=== PATIENT | female | born 1985 | race Caucasian/White ===

== ENCOUNTER 2023-02-14 05:17 | Inpatient (IN) | payer SELFPAY, OTHER ==
--- NOTE | 2023-02-08 09:10 | EKG12_ITS ---
Test Reason : PRE OP Blood Pressure : / mmHG Vent. Rate : 087 BPM Atrial Rate : 087 BPM P-R Int : 156 ms QRS Dur : 086 ms QT Int : 372 ms P-R-T Axes : 035 059 037 degrees QTc Int : 447 ms Normal sinus rhythm Normal ECG Confirmed by HOWARD VERMA ([id number]), health editor SANTHOSH MCMULLEN ([id number]) on 02/14/2023 1:50:55 PM Referred By: Benji Wadsworth Confirmed By:HOWARD VERMA
[2023-02-08 11:01] LABS: Hematocrit 41.8 % (37-47); Hemoglobin 14.4 g/dL (12.0-15.0); Mean Corp Hgb Conc 34.4 g/dL (32-36); Mean Corpuscular Hgb 31.6 pg (27.0-32.0); Mean Corpuscular Volume 91.9 fL (81-99); Mean Platelet Vol. 9.4 fl (6.2-12.0); Platelet Count 213 K/mm3 (150-450); RBC Distribution Width CV 13.1 % (11.6-14.6); RBC Distribution Width SD 44.5 fl (35.1-43.9); Red Blood Count 4.55 M/mm3 (4.2-5.4)
[2023-02-08 11:18] LABS: Anion Gap 5 (5-15); BUN 8 mg/dL (7-18); BUN/Creat Ratio 11.1 RATIO (10-20); Calcium,Total 8.9 mg/dL (8.5-10.1); Chloride 110 mmol/L (98-107); Creatinine, Serum 0.72 mg/dL (0.55-1.02); EST Glomerular Filtration Rate 96 mL/min (>60); Est Glom Filt Rate - Afr Amer 116 mL/min (>60); Glucose 105 mg/dL (74-106); Potassium 3.7 mmol/L (3.5-5.1); Sodium Level 140 mmol/L (136-145)
[2023-02-14] VITALS (12 sets, daily range): BP systolic 100–129; BP diastolic 53–91; PULSE 65–92; RESP 16–24; TEMP 36.4–37.3; O2SAT 94–100; BMI 48.6; BMI 48.4
--- NOTE | 2023-02-14 | HYST_PTH ---
PATIENT: IVETTE BROWN LOC: [facility]3 U#:[id number] AGE/SX: 37/F ROOM: MS316 RE02/14/[address]: Dr. Benji Brown MD : 1985 BED: 1 DIS: 02/15/2023 SPEC #: [id number] RECD: 02/14/23 10:36 STATUS: KAREY REQ #: [id number] BUZZ: 02/14/23 00:[address]: Benji Brown DEPT: SURGICAL PATHOLOGY RECD BY: Silverio Alberto ENTERED: 02/14/23 10:37 SP TYPE: HYSTERECT OTHR DR: Dr. Jan Cardoso MD Tissues: Uterus, NOS Procedures: Surgery Specimen Level V HEADER OPERATION: ERAS, hysterectomy, ANT, bilateral salpingectomy PRE-OP DIAGNOSIS: Abnormal uterine bleeding, leiomyomas TISSUE SUBMITTED: Bilateral fallopian tubes, cervix, uterus MICROSCOPIC DIAGNOSIS Uterus, supracervical hysterectomy: Endocervix - mild chronic inflammation. Endometrium - secretory endometrium. Myometrium - leiomyomas. Right fallopian tube - no pathologic change. Left fallopian tube - paratubal cysts. AM:gopi 02/15/2023 MICROSCOPIC DESCRIPTION Slides are reviewed. GROSS DESCRIPTION Received in fixative is one container labeled with the patient's name and designated uterus. The specimen consists of a supracervical uterus with cervix measuring 14.0 x 11.0 x 8.5 cm and weighing 554 gm. Also present free in the container is an ovoid, rubbery, pink-white mass measuring 17.0 x 15.0 x 10.5 cm and weighing 1425 gm and grossly resembling a leiomyoma. Also present free in the container are two fallopian tubes with average length of 5.0 cm and average diameters of 0.7 cm. The endocervical canal measures 3.0 cm in length and is grossly unremarkable. The triangular endometrial cavity measures 8.0 x 5.0 cm. The velvety, light burgess endometrium measures up to 0.2 cm in thickness. The myometrium measures approximately 2.0 cm in thickness and distorted by multiple spherical rubbery nodules resembling leiomyomas and ranging in size from 0.2 to 9.5 cm. Melter Caster sections are submitted in 12 cassettes as follows: 1 - anterior endocervix, 2 - posterior endocervix, 3 & 4 - anterior uterine wall, 5 & 6 - posterior uterine wall with largest myometrial mass, 7 - second largest myometrial mass, 8 - third largest myometrial mass, 9 & 10 - myometrial mass free in container, 11 - one fallopian tube, 12 - the other fallopian tube. / AM:gopi 02/14/2023 TC:1 CPT: 73853
[2023-02-14] MEDS: Gabapentin 600 MG Tablet PO (06:06)
[2023-02-14] MEDS: Acetaminophen 500 MG Tablet 1000 MG PO ×3 (06:06→18:29)
[2023-02-14 06:09] LABS: Internal QC Validated? YES +Cl - CLEAR BKGD; Pregnancy, Urine Negative Negative
[2023-02-14] MEDS: Lactated Ringers 1,000 ML 40 ML IV (06:39)
[2023-02-14] MEDS: Magnesium 1 GM over 15 mins IV (06:39)
[2023-02-14 06:48] LABS: Bedside Glucose 96 mg/dL (74-106)
--- NOTE | 2023-02-14 07:21 | PCM.HP.BLA ---
History and Physical Date of Admission: 02/14/23 Chief complaint: Abnormal uterine bleeding and fibroids History present illness: 37-year-old arrives for scheduled total abdominal hysterectomy and bilateral salpingectomy for abnormal uterine bleeding and leiomyomas. No medical changes since last seen. All questions answered and consent signed. Obstetric history: G0 Past medical history: Anxiety depression Medications: Effexor Allergies: No known drug allergies Past surgical history: None Social history: Denies smoking, alcohol use, drug use Family history: Denies history DVT or PE Review of systems: Besides above pertinent positives a full review of systems was performed and found to be negative Physical exam: Vitals: Blood pressure 126/91 pulse 92 respiratory rate 18 temperature 97.8 ?F SPO2 100% on room air General: Normal-appearing no acute distress HEENT: Normocephalic/atraumatic no cervical lymphadenopathy Cardiac/respiratory: No use accessory muscles, nonlabored breathing Abdomen: Soft, nontender, palpable fibroid uterus Extremities: No peripheral edema normal peripheral pulses Psych: Normal affect normal demeanor nonpressured speech Labs: Urine test negative, One Touch blood sugar 96 Assessment plan: 37-year-old for scheduled total abdominal hysterectomy bilateral salpingectomy for abnormal uterine bleeding and leiomyomas. Patient understands risk of the procedure include but are not limited to visceral or vascular injury, prolonged hospitalization, blood loss need for transfusion, reoperation. Patient state understanding wish to proceed. All questions were answered and consent was signed.
--- NOTE | 2023-02-14 10:04 | OP.PCM_ITS ---
Report of Operation Date of Procedure: 02/14/23 Pre-Operative Diagnosis: Abnormal uterine bleeding, leiomyomas Post-Operative Diagnosis: Abnormal uterine bleeding, leiomyomas Surgery/Procedure Performed:: Total abdominal hysterectomy bilateral salpingectomy via vertical midline incision Description of Surgical Findings:: Surgeon: Benji Wadsworth MD EBL: 50 cc Urine output: 400 cc IV fluids: 1500 cc Complications: None Specimen: Uterus, bilateral fallopian tubes, cervix, leiomyomas Findings: 15 cm fundal pedunculated leiomyoma. 4 cm anterior fundal uterine fibroid. Otherwise normal uterus, tubes, and ovaries. Consent: Patient with abnormal uterine bleeding and leiomyomas elects for total abdominal hysterectomy bilateral salpingectomy via vertical midline incision. Patient understands risk of the procedure include but are not limited to visceral or vascular injury, prolonged hospitalization, blood loss need for transfusion, reoperation. Educated patient on increased risk with vertical midline incision. Patient states understanding and wished to proceed. All questions were answered and consent was signed. Procedure: Patient was brought back to the OR where general anesthesia was found to be adequate. 3 g Ancef were given for infection prophylaxis. Patient was prepared and draped in a supine position. Vertical midline incision was made at the skin with a scalpel, incision was carried down to the fascia with the Bovie. Fascia was incised vertically using a Bovie and undermining with a hemostat. Rectus muscle was dissected at the midline. Peritoneum was identified and grasped with hemostats and entered sharply. Peritoneum was extended superiorly and inferiorly with good visualization of bladder. Jesus retractor was inserted and above findings were noted. Pedunculated fibroid as noted above was removed with a LigaSure device at its pedicle. And sent to pathology. Sharda's were placed on the cornua was of the uterus. Left round ligament was identified and was suture-ligated cut and cauterized with the Bovie anterior and posterior portions of the broad ligament were dissected. Medial leaf of the broad ligament was dissected and left ureter was palpated and noted to be out of the operative field. Bladder flap was developed. Left utero-ovarian ligament was isolated cut and cauterized with the LigaSure device. Good hemostasis was noted. Left fallopian tube was identified to the fimbria elevated with a Nabeel and the mesosalpinx was cut and cauterized with LigaSure device, left fallopian tube was transected at the cornua and sent to pathology. Good hemostasis was noted. Left uterine vessels were identified cut and cauterized with LigaSure device. Left uterine vessels were lateralized beyond the level of the cervix. Right round ligament was suture-ligated cut and cauterized with a Bovie. Anterior and posterior portions of the broad ligament were dissected. Medial leaf of the broad ligament was dissected and left ureter was palpated and noted to be out of the operative field. Right utero-ovarian ligament was identified cut and cauterized with LigaSure device. Good hemostasis was noted. Bladder flap was fully developed beyond the level of the cervix. Right uterine vessels were identified cut and cauterized with LigaSure device. Right uterine vessels were lateralized beyond the level of the cervix. Using right angle Zeppelin's the clamps were placed at the cervical vaginal junction. Using Chandan scissors the colpotomy was made. Uterus was sent to pathology. Rashad transfixation sutures were placed bilaterally at each right angle Zeppelin clamp. Good hemostasis was noted. Inferior portion of the cervix was noted to be still present using Sharda an Allis clamp the cervical vaginal junction was dissected sharply and the cervix was removed and sent to pathology. Good hemostasis was noted. Vaginal cuff was closed with Vicryl [id number] sutures. Good hemostasis was noted. Abdominal irrigation was performed and good hemostasis was noted. Floseal was placed over the operative site. Good hemostasis was noted. Jesus retractor was removed. Fascia was closed in a modified Smead Ponce closure with 2 double-stranded PDS tied at the midline. Subcutaneous irrigation was performed and hemostasis was achieved with the Bovie. Good hemostasis was noted. Subcutaneous Vicryl sutures were placed. Skin was reapproximated with a stapler. Good hemostasis was noted. All counts were correct x2. Patient tolerated the procedure well and was brought to recovery in astable condition. captain airline pilot: Miriam Wadsworth captain airline pilot: Lyle Borjas
[2023-02-14] MEDS: Ondansetron 4 MG/2 ML Vial IV (10:12)
[2023-02-14] MEDS: oxyCODONE 5 MG Tablet PO (14:28)
[2023-02-14] MEDS: Ketorolac 30 MG/ML Syringe IV ×2 (16:22→21:27)
[2023-02-14] MEDS: Enoxaparin 40 MG/0.4 ML Syringe SC (21:27)
[2023-02-14] MEDS: Docusate Sodium 100 MG Capsule PO (21:27)
[2023-02-15] MEDS: Acetaminophen 500 MG Tablet 1000 MG PO ×2 (00:57→07:08)
[2023-02-15 00:59] VITALS: BP 123/68; PULSE 71; RESP 16; TEMP 36.8; O2SAT 96
[2023-02-15] MEDS: Ketorolac 30 MG/ML Syringe IV (05:01)
[2023-02-15 05:08] VITALS: BP 125/75; PULSE 84; RESP 16; TEMP 36.8; O2SAT 96
--- NOTE | 2023-02-15 07:09 | DCINST_ITS ---
Discharge Instructions Diet Discharge Diet: No restrictions Activity Discharge Activity: Return to Normal Activity, May Drive, May Shower and - (No tub baths for 2 weeks) May resume sexual activity in: 6-8 weeks Lifting Restrictions: No lifting over 25 pounds for 3 weeks Dressing / Incision Call your doctor if your incision/area has: Continuous Slow Oozing and Foul Smelling Discharge Call your doctor if you observe: Fever of 101 or Higher, Shortness of breath and Chest pain Follow Up Care Please Follow Up With: Benji Wadsworth MD When: 5 to 7 days for staple removal Test Results: Test results from this visit will be discussed in further detail at your follow- up appointment, if applicable. Discharge Plan Admission Admit Date/Time: 02/14/23 05:17 Attending Provider: Benji Wadsworth Primary Care Provider: Jan Cardoso Discharge Orders/Prescriptions Prescriptions: New oxycodone 5 mg Tablet 5 mg PO Q4H PRN PRN (Reason: Pain Score 7-10/10) 5 Days Qty: 20 0RF Continued venlafaxine 75 mg tablet 75 mg PO DAILY loratadine [Allergy Relief (loratadine)] 10 mg tablet 10 mg PO DAILY ferrous sulfate [Feosol] 325 mg (65 mg iron) tablet 325 mg PO DAILY Other Ambulatory Orders: 12 Lead EKG (Routine) Timeframe: [id number] Location: None Selected Ordered By: Dr. Leeroy Roe
--- NOTE | 2023-02-15 07:10 | PCM.PN.OB ---
Subjective Subjective No overnight complaints. Pain well controlled. Objective Data Objective Data Vital Signs: Vital Signs Temp Pulse Resp BP Pulse Ox O2 Del Method O2 Flow Rate 98.2 F 84 16 125/75 H 96 Room Air 2 02/15/23 05:08 02/15/23 05:08 02/15/23 05:08 02/15/23 05:08 02/15/23 05:08 02/15/23 05:08 02/14/23 14:21 Oxygen Flow Rate (L/min) 2 Oxygen Delivery Method Room Air Weight: 282 lb 8 oz Body Mass Index (BMI) 48.4 Intake & Output: Intake and Output for Last 24 Hours 02/13/23 02/14/23 02/15/23 23:59 23:59 23:59 Intake Total 2434.08 / 3034.08 1087.5 / 1087.5 Output Total 800 / 2700 1900 / 1900 Balance 1634.08 / 334.08 -812.5 / -812.5 Lab / Micro Data 02/08/23 10:40 02/08/23 10:40 Physical Exam Const alert, oriented x3, no apparent distress, average body habitus and healthy appearing HEENT normocephalic and moist oral mucous membranes Eyes PERRL Neck full ROM Resp normal respiratory effort, no retractions and no use of accessory muscles Narrative: Soft, nontender, bandage clean dry and intact Extremity normal to inspection and full ROM Neuro moves all extremities and no focal motor deficits Psych mental status grossly normal, affect normal and speech normal Assessment & Plan (1) Acute postoperative pain: PLAN: Postop day 1 status post total abdominal hysterectomy bilateral salpingectomy. Pain well controlled. Tolerating diet. To DC [place] and with spontaneous void okay to discharge home. Educated patient on postoperative recovery and restrictions. Discussed pain control
[2023-02-15 07:14] LABS: Hematocrit 40.9 % (37-47); Hemoglobin 13.6 g/dL (12.0-15.0); Mean Corp Hgb Conc 33.3 g/dL (32-36); Mean Corpuscular Hgb 30.8 pg (27.0-32.0); Mean Corpuscular Volume 92.5 fL (81-99); Mean Platelet Vol. 9.6 fl (6.2-12.0); Platelet Count 205 K/mm3 (150-450); RBC Distribution Width CV 13.1 % (11.6-14.6); RBC Distribution Width SD 44.2 fl (35.1-43.9); Red Blood Count 4.42 M/mm3 (4.2-5.4); White Blood Count 15.9 K/mm3 (4.4-11.0)
[2023-02-15 08:05] VITALS: BP 112/61; PULSE 69; RESP 17; TEMP 36.8; O2SAT 99
[2023-02-15] MEDS: Docusate Sodium 100 MG Capsule PO (08:12)
[2023-02-15] MEDS: Ensure Plus High Protein 120 ML LIQUID PO (08:15)
[2023-02-15 08:17] VITALS: O2SAT 99
[2023-02-15 09:24] VITALS: O2SAT 97
--- NOTE | 2023-02-15 09:41 | PHA.DC_ITS ---
Pharmacy [facility] has performed discharge medication reconciliation and counseling for this patient. 1. OXYCODONE 5MG PO Q4H PRN PAIN 7-10 The patient's discharge medication list was reviewed for discrepancies and discrepancies were resolved. The patient was counseled on the following discharge medications and changes in medications for homegoing were reviewed. The Reason for Use, instructions for use, and potential side effects were reviewed for all new medications. The patient's questions regarding all of their medications were answered. The patient was able to verbally demonstrate an understanding of their discharge medications. Patient counseled by student development specialistMichelle. Medications at Discharge Home Medications ferrous sulfate 325 mg (65 mg iron) tablet (Feosol) 325 mg PO DAILY BLEEDI 02/03/23 loratadine 10 mg tablet (Allergy Relief (loratadine)) 10 mg PO DAILY ALL 02/03/23 venlafaxine 75 mg tablet 75 mg PO DAILY DEPRESS 02/03/23 oxycodone 5 mg tablet 5 mg PO Q4H PRN PRN Pain Score 7-10/10 5 days #20 tabs 02/14/23
--- NOTE | 2023-02-15 11:13 | CASEMGMT ---
RN?CM?SALVAGE MEND WORKER?CM?to room to complete initial RN CM assessment. Pt has already been discharged. RN CM placed call to the cell phone # listed on pt's demographics. No answer. PCP: Dr Cardoso Specialists: Dr Benji Wadsworth- LEATHER FITTER Preferred Pharmacy: [facility] Insurance: [facility] package plan, [facility] Prescription Benefit:?none Living Will/HPOA:?Pt does not currently have LW/HCPOA per admission questions in [facility] LNOK: MotherGris Living Arrangements: Lives w/family Transportation: Hire drivers. DME: ?unknown at this time. Pt had been up ambulating in room w/SBA and no use of AD PLAN:??RN CM completed chart review and the above information obtained. No discharge planning needs identified. Miguel BSN?RN?CM
== END 2023-02-15 10:23 | disposition home or self-care (01) | DRG 743 ==
LOC: ACINP 05:23 → MS3 10:21
PROVIDERS: Anesthesiology; Admitting Provider Obstetrics & Gynecology; PCP Family Medicine; Referring Provider Obstetrics & Gynecology; Visit Provider Obstetrics & Gynecology
PROC: 0UT90ZZ Resection of Uterus, Open Approach (ICD-10-PCS; CPT 58150; principal; 2023-02-14 07:10)
DX: N93.9 Abnormal uterine and vaginal bleeding, unspecified (principal); D25.9 Leiomyoma of uterus, unspecified; F32.A Depression, unspecified; F41.9 Anxiety disorder, unspecified; Z79.899 Other long term (current) drug therapy
CPT/HCPCS: 36415; 80048; 81025; 82962; 83735; 85027; 86850; 86900; 86901; 88307; 93005; 94668; 99252; J7120; G0463; J2405; J3475